=== PATIENT | female | born 1965 | race Caucasian/White ===

== ENCOUNTER 2019-02-22 06:35 | Emergency (ER) | payer SELFPAY ==
[2019-02-22] MEDS ORDERED: methylPREDNISolone Sod Succ/PF 125 MG/2 ML VIAL ONE (06:48)
[2019-02-22 06:56] LABS: #Basophils 0.1 thou/uL (0.0-0.2); #Lymphocytes 2.9 thou/uL (1.20-3.40); #Monocytes 0.7 thou/uL (0.11-0.59); %Basophils 0.9 % (0.0-1.0); %Eosinophils 10.4 % (0.0-10.0); %Lymphocytes 30.1 % (21.0-51.0); %Monocytes 6.9 % (0.0-10.0); %Neutrophils 51.6 % (42.0-75.0); Hemoglobin 17.2 g/dL (12.0-16.0); Mean Corpuscular HGB CONC 34.4 g/dL (32.0-36.0); Mean Corpuscular Hemoglobin 31.7 pg (27.0-31.0); Mean Corpuscular Volume 92.2 fL (78.0-98.0); Mean Platelet Volume 8.4 fL (7.4-10.4); Platelet Count 254 thou/uL (130-400); RBC Distribution Width 11.7 % (11.5-14.5); Red Blood Cell (RBC) Count 5.43 mill/uL (4.20-5.40); White Blood Cell (WBC) Count 9.7 thou/uL (4.8-10.8)
[2019-02-22] MEDS ORDERED: Aspirin Chewable 81 MG TAB ONE (06:56)
[2019-02-22] MEDS ORDERED: Doxycycline 100 MG CAP PO SCH (07:00)
[2019-02-22 07:25] LABS: ALT (SGPT) 13 U/L (8-55); AST (SGOT) 15 U/L (5-34); Albumin 4.6 g/dL (3.5-5.0); Alkaline Phosphatase 106 U/L (40-110); Anion Gap 15 mmol/L (10-20); BUN (Urea Nitrogen) 21 mg/dL (9.8-20.1); Bilirubin, Total 0.4 mg/dL (0.2-1.2); Calc. Creatinine Clearance 0 mL/min (70-130); Calcium 10.2 mg/dL (7.8-10.44); Carbon Dioxide 24 mmol/L (22-29); Chloride 105 mmol/L (98-107); Estimated GFR-MDRD 78; Globulin 3.7 g/dL (2.4-3.5); Glucose 84 mg/dL (70-105); Potassium 4.2 mmol/L (3.5-5.1); Protein, Total 8.3 g/dL (6.0-8.3); Sodium 140 mmol/L (136-145)
--- NOTE | 2019-02-22 08:35 | RAD ---
FRONTAL VIEW CHEST: INDICATIONS: Short of breath. COMPARISON: 05/26/2011 FINDINGS: There is no consolidation, effusion or pneumothorax. The cardiac silhouette is normal in size. The os seous structures reveal no acute process. IMPRESSION: No focal consolidation. POS: C
== END 2019-02-22 08:20 | disposition home or self-care (01) ==
LOC: ERS 06:35
DX: J44.1 Chronic obstructive pulmonary disease with (acute) exacerbation (principal); R07.89 Other chest pain; F17.210 Nicotine dependence, cigarettes, uncomplicated; Z79.51 Long term (current) use of inhaled steroids
CPT/HCPCS: 36415; 71045; 80053; 83880; 84484; 85025; 93005; 94640; 96374; J2930; J7620

== ENCOUNTER 2019-02-27 03:33 | Emergency (ER) | payer SELFPAY ==
[2019-02-27 03:58] LABS: #Basophils 0.1 thou/uL (0.0-0.2); #Eosinphils 0.9 thou/uL (0.0-0.7); #Lymphocytes 2.6 thou/uL (1.20-3.40); #Monocytes 0.5 thou/uL (0.11-0.59); #Neutrophils 3.4 thou/uL (1.40-6.50); %Basophils 0.7 % (0.0-1.0); %Eosinophils 11.7 % (0.0-10.0); %Lymphocytes 34.6 % (21.0-51.0); Hemoglobin 15.9 g/dL (12.0-16.0); Mean Corpuscular HGB CONC 34.6 g/dL (32.0-36.0); Mean Corpuscular Hemoglobin 31.9 pg (27.0-31.0); Mean Corpuscular Volume 92.2 fL (78.0-98.0); Mean Platelet Volume 8.2 fL (7.4-10.4); Platelet Count 191 thou/uL (130-400); RBC Distribution Width 11.7 % (11.5-14.5); Red Blood Cell (RBC) Count 4.97 mill/uL (4.20-5.40); White Blood Cell (WBC) Count 7.5 thou/uL (4.8-10.8)
[2019-02-27 04:19] LABS: ALT (SGPT) 17 U/L (8-55); AST (SGOT) 16 U/L (5-34); Albumin 4.5 g/dL (3.5-5.0); Alkaline Phosphatase 109 U/L (40-110); Anion Gap 14 mmol/L (10-20); BUN (Urea Nitrogen) 21 mg/dL (9.8-20.1); Bilirubin, Total 0.5 mg/dL (0.2-1.2); Calc. Creatinine Clearance 0 mL/min (70-130); Calcium 9.9 mg/dL (7.8-10.44); Carbon Dioxide 27 mmol/L (22-29); Chloride 106 mmol/L (98-107); Estimated GFR-MDRD 78; Globulin 3.2 g/dL (2.4-3.5); Glucose 116 mg/dL (70-105); Potassium 3.9 mmol/L (3.5-5.1); Protein, Total 7.7 g/dL (6.0-8.3); Sodium 143 mmol/L (136-145)
[2019-02-27] MEDS ORDERED: methylPREDNISolone Sod Succ/PF 125 MG/2 ML VIAL ONE (04:30)
[2019-02-27] MEDS ORDERED: Albuterol Sulfate 2.5 mg/3 ml Neb ONE (04:34)
--- NOTE | 2019-02-27 07:33 | RAD ---
XR Chest 1 View Portable History: Chest pain Comparison: Radiograph February 22, 2019 Findings: Mild increased interstitial markings in the lung bases. No pneumothorax. No effusion. Cardi ac silhouette and mediastinal contours are within normal limits. Impression: Mild increased interstitial markings both lung bases extending to the peripheral pleura. Given the normal heart size, this may reflect noncardiogenic pulmonary edema versus viral infectious process.
== END 2019-02-27 06:03 | disposition home or self-care (01) ==
LOC: ERS 03:33
DX: J44.1 Chronic obstructive pulmonary disease with (acute) exacerbation (principal); F17.210 Nicotine dependence, cigarettes, uncomplicated; Z79.51 Long term (current) use of inhaled steroids
CPT/HCPCS: 71045; 80053; 84484; 85025; 93005; 94640; 96374; J2930; J7611; J7620

== ENCOUNTER 2019-04-14 07:53 | Observation (INO) | payer SELFPAY ==
[2019-04-14] MEDS ORDERED: methylPREDNISolone Sod Succ/PF 125 MG/2 ML VIAL ONE (08:23)
[2019-04-14] MEDS ORDERED: Albuterol Sulfate 2.5 mg/3 ml Neb ONE (08:23)
[2019-04-14 08:58] LABS: #Basophils 0.1 thou/uL (0.0-0.2); #Eosinphils 0.9 thou/uL (0.0-0.7); #Monocytes 0.4 thou/uL (0.11-0.59); #Neutrophils 5.4 thou/uL (1.40-6.50); %Basophils 0.6 % (0.0-1.0); %Eosinophils 10.3 % (0.0-10.0); %Lymphocytes 22.6 % (21.0-51.0); %Neutrophils 61.4 % (42.0-75.0); Mean Corpuscular HGB CONC 34.4 g/dL (32.0-36.0); Mean Corpuscular Hemoglobin 32.1 pg (27.0-31.0); Mean Corpuscular Volume 93.5 fL (78.0-98.0); Mean Platelet Volume 9.3 fL (7.4-10.4); Platelet Count 180 thou/uL (130-400); RBC Distribution Width 11.9 % (11.5-14.5); Red Blood Cell (RBC) Count 4.98 mill/uL (4.20-5.40); White Blood Cell (WBC) Count 8.7 thou/uL (4.8-10.8)
--- NOTE | 2019-04-14 09:09 | RAD ---
CHEST 1 VIEW: Date: 04/14/19 HISTORY: Dyspnea. COMPARISON: 02/27/19. FINDINGS: Heart size is normal. The lungs are clear. IMPRESSION: No acute intrathoracic disease. No evidence of pneumonia or other acute process. Stable from prior st udy. POS: [facility]
[2019-04-14 10:37] LABS: ALT (SGPT) 12 U/L (8-55); AST (SGOT) 14 U/L (5-34); Albumin 4.2 g/dL (3.5-5.0); Alkaline Phosphatase 96 U/L (40-110); Anion Gap 13 mmol/L (10-20); BUN (Urea Nitrogen) 9 mg/dL (9.8-20.1); Bilirubin, Total 0.4 mg/dL (0.2-1.2); Calc. Creatinine Clearance 0 mL/min (70-130); Calcium 9.4 mg/dL (7.8-10.44); Carbon Dioxide 26 mmol/L (22-29); Chloride 106 mmol/L (98-107); Estimated GFR-MDRD 83; Globulin 2.8 g/dL (2.4-3.5); Glucose 130 mg/dL (70-105); Potassium 3.5 mmol/L (3.5-5.1); Sodium 141 mmol/L (136-145)
[2019-04-14 11:15] VITALS: BMI 22.0
[2019-04-14] MEDS ORDERED: methylPREDNISolone Sod Succ/PF 125 MG/2 ML VIAL IVP SCH (14:00)
[2019-04-14] MEDS: methylPREDNISolone Sod Succ 40 MG VIAL IVP SCH (17:33)
[2019-04-15] MEDS: methylPREDNISolone Sod Succ 40 MG VIAL IVP SCH ×3 (00:43→12:05)
[2019-04-15 05:46] LABS: Band 6 % (5-11); Hemoglobin 15.2 g/dL (12.0-16.0); Lymphocytes 6 % (21-51); MDiff Complete? YES; Mean Corpuscular HGB CONC 33.7 g/dL (32.0-36.0); Mean Corpuscular Hemoglobin 31.9 pg (27.0-31.0); Mean Corpuscular Volume 94.5 fL (78.0-98.0); Monocytes 1 % (0-10); Neutrophil 87 % (42-75); Platelet Count 193 thou/uL (130-400); Platelet Morphology Comment Appears Adequate; RBC Distribution Width 11.9 % (11.5-14.5); Red Blood Cell (RBC) Count 4.77 mill/uL (4.20-5.40); White Blood Cell (WBC) Count 17.6 thou/uL (4.8-10.8)
[2019-04-15 05:55] LABS: Anion Gap 15 mmol/L (10-20); BUN (Urea Nitrogen) 17 mg/dL (9.8-20.1); Calc. Creatinine Clearance 73 mL/min (70-130); Calcium 9.9 mg/dL (7.8-10.44); Carbon Dioxide 25 mmol/L (22-29); Chloride 106 mmol/L (98-107); Estimated GFR-MDRD 75; Glucose 190 mg/dL (70-105); Potassium 4.5 mmol/L (3.5-5.1); Sodium 141 mmol/L (136-145)
[2019-04-15] MEDS ORDERED: Enoxaparin Sodium 40 MG/0.4 ML SYRINGE SC SCH (09:00)
--- NOTE | 2019-04-15 09:29 | HP ---
CHIEF COMPLAINT: Shortness of breath. HISTORY OF PRESENT ILLNESS: This patient is a 53-year-old female who presented via the emergency department. She reported shortness of breath over the past several days, had increased significantly the day before. She had some associated pressure in the right side of her chest that she states goes completely away after getting the nebulizer treatment. Her breathing improves. She states she knows she has a history of COPD. She did have a bronchodilator inhaler at home. She said she tried it multiple times and ultimately was getting no relief, but it was causing her to become shaky. She did have a cough productive of a more white frothy type sputum. She had no associated fevers or chills. The patient reports she has never previously been hospitalized for COPD exacerbation in the past, although she has had emergency room visits. REVIEW OF SYSTEMS: The patient reports some lightheadedness and shaking. She had one episode a couple of days prior to admission where she had dark urine that was cola colored x1, but that completely resolved. She also had some nausea and vomiting a couple days ago and that completely resolved as well. PAST MEDICAL HISTORY: COPD, history of a right knee fracture. She states that she is supposed to see an orthopedic doctor, but does not have resources to do so. PAST SURGICAL HISTORY: None. FAMILY HISTORY: Father has coronary artery disease and is supposed to undergo bypass surgery soon. Her mother of ovarian cancer, but had multiple myocardial infarctions prior to that time. SOCIAL HISTORY: Patient smokes half a pack of cigarettes per day. Denies alcohol or drugs. She is engaged, full code, and her father or her fiance are her surrogate decision makers. PHYSICAL EXAMINATION: VITAL SIGNS: Temperature is 98.1, pulse 97, respirations 20, O2 saturation 91% on room air, and BP is 125/60. GENERAL: She is awake and alert, pleasant, cooperative. At the time of exam, she is wearing nasal cannula oxygen. She is able to speak in nearly complete sentences. HEENT: PERRL, no OP lesions. NECK: Supple and symmetric. HEART: Regular rate and rhythm with no murmurs, gallops, or rubs. No chest wall tenderness to palpation. LUNGS: Diminished with scattered rales throughout all lung kenny, slightly worse at the bases. ABDOMEN: Soft, nontender, and nondistended. Positive bowel sounds. No masses. No organomegaly. EXTREMITIES: No cyanosis, clubbing, or edema. PSYCHIATRIC: Normal affect and behavior. NEUROLOGIC: Cranial nerves are intact. She has normal cognition. No focal deficits. LABORATORY DATA: White count 8.7, hemoglobin 16.0, platelets 180. Sodium 141, potassium 3.5, chloride 106, CO2 of 26, BUN 9, creatinine 0.74, glucose 130, calcium 9.4, AST 14, ALT is 12. Troponin 0.016. Albumin 4.2. Chest x-ray shows no acute intrathoracic disease. IMPRESSION AND PLAN: 1. Chronic obstructive pulmonary disease exacerbation in a patient who continues to smoke. She will be placed on observation. Continue with nebulizer treatments, steroids, and supplemental oxygen as needed. I do not believe there is indication for antibiotics at this time. 2. Ongoing tobacco abuse. 3. Acute hypoxic respiratory failure secondary to chronic obstructive pulmonary disease exacerbation. Continue supplemental oxygen as above. Job ID: [id number]
[2019-04-15] MEDS ORDERED: FLU VACC QS2019-20(6MOS UP)/PF 60 MCG/0.5 ML SYRINGE IM ONE (11:30)
[2019-04-15 12:16] VITALS: BP 110/70; TEMP 97.9
--- NOTE | 2019-04-16 14:01 | DIS ---
DATE OF ADMISSION: 04/14/2019 DATE OF DISCHARGE: 04/15/2019 DISCHARGE DIAGNOSES: 1. Acute hypoxic respiratory failure. 2. Chronic obstructive pulmonary disease exacerbation. 3. Tobacco abuse. HISTORY OF PRESENT ILLNESS: This patient is a 53-year-old female who continues to smoke, who reported to the emergency department reporting shortness of breath. She had bronchodilators at home, which she had tried to use, but was not getting any relief, and was experiencing increased tremor as a result. She had a normal white count. Labs are otherwise generally unremarkable. Chest x-ray was negative. HOSPITAL COURSE: The patient was admitted and placed in observation status, placed on supplemental oxygen after room air sat of 91%. She received steroids, supplemental oxygen, and nebulizer treatments to which she responded well. She was able to subsequently get up, move about without oxygen and maintain her oxygen saturations and was no longer symptomatic. With that, she was felt to be stable for discharge to home. PHYSICAL EXAMINATION: VITAL SIGNS: On the time of discharge, temperature 97.9, pulse 72, respirations 17, O2 saturation was 96% on room air, BP 110/70. GENERAL: She was awake and alert. HEART: Regular rate and rhythm. LUNGS: Clear to auscultation bilaterally with good chest wall expansion and air exchange. ABDOMEN: Soft, nontender, and nondistended. EXTREMITIES: No cyanosis, clubbing, or edema. DISPOSITION: The patient is discharged home. DISCHARGE MEDICATIONS: She will be on; 1. DuoNeb q.4 hours p.r.n. 2. Prednisone 20 mg p.o. daily. 3. Refill her albuterol inhaler two puffs q.6 hours p.r.n. ACTIVITY: As tolerated. DIET: She will be on a heart healthy diet. She is encouraged to discontinue smoking. FOLLOWUP: She will follow up with Gabriela Carbone on 04/15/2019. She can return to the hospital at any time should she have the need to do so. Job ID: [id number]
== END 2019-04-15 12:17 | disposition home or self-care (01) ==
LOC: ERS 07:53 → T4-A 11:09
PROVIDERS: ADMIT Emergency Medicine; ATTEND Emergency Medicine
DX: J44.1 Chronic obstructive pulmonary disease with (acute) exacerbation (principal); J96.01 Acute respiratory failure with hypoxia; F17.210 Nicotine dependence, cigarettes, uncomplicated
CPT/HCPCS: 36415; 71045; 80048; 80053; 84484; 85025; 90471; 90686; 90732; 93005; 94640; 94644; 96372; 96374; 96376; 99406; G0008; G0009; G0378; J1650; J2920; J2930; J7611; J7620

== ENCOUNTER 2021-08-01 12:14 | Emergency (ER) | payer OTHER, SELFPAY ==
[~2021-08-01 12:14] MED LIST: Iopamidol 370 76% 100 ML VIAL ONE
[2021-08-01] MEDS ORDERED: Ondansetron PF 4 MG/2 ML Vial ONE (12:39)
[2021-08-01] MEDS ORDERED: Morphine 4 MG/ML VIAL ONE (12:39)
[2021-08-01 12:49] LABS: #Eosinphils 0.1 thou/uL (0.0-0.7); #Lymphocytes 2.5 thou/uL (1.20-3.40); #Monocytes 0.6 thou/uL (0.11-0.59); #Neutrophils 3.9 thou/uL (1.40-6.50); %Basophils 0.4 % (0.0-1.0); %Lymphocytes 34.9 % (21.0-51.0); %Monocytes 7.7 % (0.0-10.0); %Neutrophils 55.1 % (42.0-75.0); Hemoglobin 15.9 g/dL (12.0-16.0); Mean Corpuscular HGB CONC 34.4 g/dL (32.0-36.0); Mean Corpuscular Hemoglobin 33.3 pg (27.0-31.0); Mean Corpuscular Volume 96.7 fL (78.0-98.0); Mean Platelet Volume 8.4 fL (7.4-10.4); Platelet Count 198 thou/uL (130-400); RBC Distribution Width 11.4 % (11.5-14.5); Red Blood Cell (RBC) Count 4.79 mill/uL (4.20-5.40); White Blood Cell (WBC) Count 7.2 thou/uL (4.8-10.8)
[2021-08-01 13:19] LABS: ALT (SGPT) 14 U/L (8-55); AST (SGOT) 22 U/L (5-34); Albumin 4.2 g/dL (3.5-5.0); Alkaline Phosphatase 102 U/L (40-110); Anion Gap 15 mmol/L (10-20); BUN (Urea Nitrogen) 22 mg/dL (9.8-20.1); Bilirubin, Total 0.7 mg/dL (0.2-1.2); Calc. Creatinine Clearance 0 mL/min (70-130); Calcium 9.1 mg/dL (7.8-10.44); Carbon Dioxide 20 mmol/L (22-29); Chloride 104 mmol/L (98-107); Globulin 3.5 g/dL (2.4-3.5); Glucose 179 mg/dL (70-105); Lipase 17 U/L (8-78); Potassium 4.9 mmol/L (3.5-5.1); Protein, Total 7.7 g/dL (6.0-8.3); Sodium 134 mmol/L (136-145)
[2021-08-01 13:46] LABS: Bacteria/HPF None Seen HPF (None Seen); Bilirubin Negative (Negative); Blood, Urine Negative (Negative); Clarity Clear (Clear); Glucose, Urine (Dipstick) Normal (Negative); Ketone, Urine Negative (Negative); Leukocyte 75 Leu/uL (Negative); Nitrite Negative (Negative); Protein, Urine (Dipstick) 10 mg/dL (Neg-Trace); RBC/HPF None Seen HPF (0-3); Urobilinogen Normal mg/dL (Less than 2); WBC/HPF 0-3 HPF (0-3)
[2021-08-01 13:47] LABS: Specific Gravity, Urine 1.054 (1.002-1.036)
== END 2021-08-01 14:30 | disposition home or self-care (01) ==
LOC: ERS 12:14
DX: R10.31 Right lower quadrant pain (principal); J43.9 Emphysema, unspecified; F17.210 Nicotine dependence, cigarettes, uncomplicated
CPT/HCPCS: 74177; 80053; 81003; 81015; 83690; 85025; 87086; 96374; 96375; J2270; J2405; Q9967